=== PATIENT | male | born 1950 | race Caucasian/White ===

== ENCOUNTER 2022-09-29 07:56 | Emergency (ER) | payer MEDICARE, OTHER ==
[~2022-09-29] VITALS: Ht 175.3 cm; Wt 82.0 kg
[2022-09-29 08:12] VITALS: BP 118/115
[2022-09-29 10:31] LABS: CLARITY,URINE CLEAR (Clear); COLOR,URINE YELLOW (Yellow); GLUCOSE, URINE NEGATIVE (Neg); KETONES,URINE NEGATIVE (Neg); LEUKOCYTE ESTERASE ,URINE NEGATIVE (Neg); NITRITES, URINE NEGATIVE (Neg); OCCULT BLOOD,URINE MODERATE (Neg); PROTEIN,URINE NEGATIVE (Neg)
[2022-09-29 10:32] LABS: UA COLLECTION TYPE FOLEY CATH
[2022-09-29 10:46] LABS: BASOPHILS % (AUTO) 0.4 % (0-1); EOSINOPHILS % (AUTO) 0.2 % (0-6); HEMATOCRIT 39.6 % (42.0-52.0); HEMOGLOBIN 13.7 g/dl (14.0-17.9); LYMPHOCYTES # (AUTO) 0.5 X10'3 (1.1-4.8); LYMPHOCYTES % (AUTO) 5.6 % (21-51); MEAN CORPUSCULAR HEMOGLOBIN 30.9 PG (27.0-31.0); MEAN CORPUSCULAR HGB CONC 34.5 g/dL (33.0-36.5); MEAN CORPUSCULAR VOLUME 89.7 FL (78-98); MEAN PLATELET VOLUME 9.7 FL (7.4-10.4); MONOCYTES # (AUTO) 0.7 X10'3 (0-0.9); MONOCYTES % (AUTO) 7.2 % (2-12); NEUTROPHILS # (AUTO) 8.4 X10'3 (1.8-7.7); NEUTROPHILS % (AUTO) 86.6 % (42-75); PLATELET COUNT 127 X10'3 (140-440); RED BLOOD COUNT 4.42 X10'6 (4.70-6.10); RED CELL DISTRIBUTION WIDTH 13.3 % (11.5-14.5); WHITE BLOOD COUNT 9.7 X10'3 (4.5-11.0)
[2022-09-29 10:54] LABS: ALANINE AMINOTRANSFERASE 31 U/L (12-78); ALBUMIN 3.5 G/DL (3.4-5.0); ALBUMIN/GLOBULIN RATIO 1.2 (1.1-1.5); ALKALINE PHOSPHATASE 92 IU/L (46-116); ANION GAP 11 (8-16); ASPARTATE AMINO TRANSFERASE 25 U/L (10-37); BLOOD UREA NITROGEN 16 MG/DL (7-18); BUN/CREATININE RATIO 14.8 (5.4-32.0); CALCIUM 8.5 MG/DL (8.5-10.1); CHLORIDE 104 MMOL/L (99-107); CREATININE 1.08 MG/DL (0.60-1.10); GLUCOSE 123 MG/DL (70-104); POTASSIUM 3.6 MMOL/L (3.5-5.1); SODIUM 137 MMOL/L (135-145); TOTAL CARBON DIOXIDE 21.9 MMOL/L (24-32); TOTAL PROTEIN 6.4 G/DL (6.4-8.2); eGFR 67 ML/MIN
[2022-09-29 10:59] LABS: BACTERIA,URINE NONE SEEN /HPF (Neg); SQUAMOUS EPITHELIAL CELL,UR NONE SEEN /LPF (FEW)
[2022-09-29 11:00] LABS: MUCUS STRANDS FEW /LPF (Neg); WBC CLUMPS,URINE FEW /HPF (NEGATIVE)
== END 2022-09-29 12:11 | disposition home or self-care (01) ==
LOC: ER 07:57
DX: R33.9 Retention of urine, unspecified (principal); N39.0 Urinary tract infection, site not specified; Z98.890 Other specified postprocedural states
CPT/HCPCS: 36415; 51702; 80053; 81001; 85025; 87088; 99284; A4358

== ENCOUNTER 2022-10-02 15:13 | Emergency (ER) | payer MEDICARE, OTHER ==
[~2022-10-02] VITALS: Ht 175.3 cm; Wt 79.0 kg
[2022-10-02 16:13] VITALS: BP 153/84
== END 2022-10-02 17:32 | disposition home or self-care (01) ==
LOC: ER 15:14
DX: Z46.6 Encounter for fitting and adjustment of urinary device (principal); Z98.890 Other specified postprocedural states
CPT/HCPCS: 99281

== ENCOUNTER 2022-10-29 10:55 | Emergency (ER) | payer MEDICARE, OTHER ==
[~2022-10-29] VITALS: Ht 175.3 cm; Wt 79.5 kg
[~2022-10-29 10:55] MED LIST: OXYB5TAB16 PO
[2022-10-29 11:38] VITALS: BP 174/88
[2022-10-29 12:39] LABS: BASOPHILS % (AUTO) 0.5 % (0-1); EOSINOPHILS # (AUTO) 0.2 X10'3 (0-0.9); EOSINOPHILS % (AUTO) 2.8 % (0-6); HEMATOCRIT 43.7 % (42.0-52.0); HEMOGLOBIN 14.7 g/dl (14.0-17.9); LYMPHOCYTES # (AUTO) 1.4 X10'3 (1.1-4.8); LYMPHOCYTES % (AUTO) 19.7 % (21-51); MEAN CORPUSCULAR HEMOGLOBIN 30.2 PG (27.0-31.0); MEAN CORPUSCULAR HGB CONC 33.6 g/dL (33.0-36.5); MEAN CORPUSCULAR VOLUME 89.9 FL (78-98); MEAN PLATELET VOLUME 9.8 FL (7.4-10.4); MONOCYTES # (AUTO) 0.7 X10'3 (0-0.9); MONOCYTES % (AUTO) 9.8 % (2-12); NEUTROPHILS # (AUTO) 4.7 X10'3 (1.8-7.7); NEUTROPHILS % (AUTO) 67.2 % (42-75); PLATELET COUNT 144 X10'3 (140-440); RED BLOOD COUNT 4.86 X10'6 (4.70-6.10); RED CELL DISTRIBUTION WIDTH 13.3 % (11.5-14.5); WHITE BLOOD COUNT 7.1 X10'3 (4.5-11.0)
[2022-10-29 12:51] LABS: ALBUMIN 4.1 G/DL (3.4-5.0); ANION GAP 7 (8-16); BLOOD UREA NITROGEN 23 MG/DL (7-18); BUN/CREATININE RATIO 21.1 (5.4-32.0); CALCIUM 8.9 MG/DL (8.5-10.1); CHLORIDE 107 MMOL/L (99-107); CREATININE 1.09 MG/DL (0.60-1.10); GLUCOSE 112 MG/DL (70-104); POTASSIUM 4.2 MMOL/L (3.5-5.1); SODIUM 139 MMOL/L (135-145); TOTAL CARBON DIOXIDE 25.2 MMOL/L (24-32); eGFR 66 ML/MIN
--- NOTE | 2022-10-29 15:27 | NUR ---
VASCULAR AT BEDSIDE
== END 2022-10-29 16:06 | disposition home or self-care (01) ==
LOC: ER 10:56
DX: M25.461 Effusion, right knee (principal); M25.561 Pain in right knee
CPT/HCPCS: 36415; 80048; 85025; 93971; 99284

== ENCOUNTER 2022-12-10 09:19 | Inpatient (IN) | payer MEDICARE, OTHER ==
[~2022-12-10] VITALS: Ht 175.3 cm; Wt 79.5 kg
[2022-12-10 10:03] LABS: BASOPHILS % (AUTO) 0.4 % (0-1); EOSINOPHILS # (AUTO) 0.2 X10'3 (0-0.9); EOSINOPHILS % (AUTO) 2.6 % (0-6); HEMATOCRIT 44.2 % (42.0-52.0); LYMPHOCYTES # (AUTO) 1.4 X10'3 (1.1-4.8); LYMPHOCYTES % (AUTO) 15.3 % (21-51); MEAN CORPUSCULAR HEMOGLOBIN 30.2 PG (27.0-31.0); MEAN CORPUSCULAR VOLUME 88.8 FL (78-98); MEAN PLATELET VOLUME 9.2 FL (7.4-10.4); MONOCYTES # (AUTO) 0.7 X10'3 (0-0.9); MONOCYTES % (AUTO) 7.4 % (2-12); NEUTROPHILS # (AUTO) 6.7 X10'3 (1.8-7.7); NEUTROPHILS % (AUTO) 74.3 % (42-75); PLATELET COUNT 181 X10'3 (140-440); RED BLOOD COUNT 4.97 X10'6 (4.70-6.10); RED CELL DISTRIBUTION WIDTH 13.3 % (11.5-14.5)
[2022-12-10 10:21] LABS: ALBUMIN 4.2 G/DL (3.4-5.0); ALBUMIN/GLOBULIN RATIO 1.5 (1.1-1.5); ALKALINE PHOSPHATASE 76 IU/L (46-116); BLOOD UREA NITROGEN 26 MG/DL (7-18); BUN/CREATININE RATIO 22.4 (5.4-32.0); CALCIUM 9.2 MG/DL (8.5-10.1); CHLORIDE 104 MMOL/L (99-107); CREATININE 1.16 MG/DL (0.60-1.10); GLUCOSE 124 MG/DL (70-104); POTASSIUM 4.3 MMOL/L (3.5-5.1); SODIUM 137 MMOL/L (135-145); TOTAL CARBON DIOXIDE 26.1 MMOL/L (24-32); eGFR 62 ML/MIN
[2022-12-10 10:28] LABS: ASPARTATE AMINO TRANSFERASE 7 U/L (10-37)
[2022-12-10 10:38] LABS: ALANINE AMINOTRANSFERASE < 6 U/L (12-78); ANION GAP 28 (8-16)
[2022-12-10 13:45] LABS: D-DIMER 0.38 MG/L FEU (0-0.50)
[2022-12-10] MEDS ORDERED: morphine 2 MG/ML inj. syringe IV PRN ×2 (14:50)
[2022-12-10] MEDS ORDERED: ondansetron/PF 4mg/2ml inj IV PRN (14:50)
[2022-12-10] MEDS ORDERED: acetaminophen 325mg tablet PO PRN ×2 (14:50)
[2022-12-10] MEDS ORDERED: mag hydrox/Alum hydrox/simeth 30ml oral suspension PO PRN (14:50)
[2022-12-10] MEDS ORDERED: magnesium hydroxide 30ml (MOM) UD suspension PO PRN (14:50)
[2022-12-10 14:52] LABS: APTT 31 SECONDS (22-32)
[2022-12-10 15:02] LABS: ALANINE AMINOTRANSFERASE 20 U/L (12-78); ALBUMIN 4.1 G/DL (3.4-5.0); ALBUMIN/GLOBULIN RATIO 1.5 (1.1-1.5); ALKALINE PHOSPHATASE 76 IU/L (46-116); ANION GAP 7 (8-16); ASPARTATE AMINO TRANSFERASE 8 U/L (10-37); BILIRUBIN,TOTAL 1.6 MG/DL (0.1-1.0); BLOOD UREA NITROGEN 24 MG/DL (7-18); BUN/CREATININE RATIO 21.1 (5.4-32.0); C-REACTIVE PROTEIN 0.83 MG/DL (0.0-0.5); CHLORIDE 105 MMOL/L (99-107); CREATININE 1.14 MG/DL (0.60-1.10); GLUCOSE 109 MG/DL (70-104); POTASSIUM 4.3 MMOL/L (3.5-5.1); SODIUM 138 MMOL/L (135-145); TOTAL CARBON DIOXIDE 25.7 MMOL/L (24-32); TOTAL PROTEIN 6.9 G/DL (6.4-8.2); eGFR 63 ML/MIN
[2022-12-10] MEDS ORDERED: FINA5TAB11 PO (18:21)
[2022-12-10] MEDS ORDERED: ATOR10TA70 PO (18:21)
[2022-12-10] MEDS ORDERED: OXYB5TAB16 PO (18:21)
[2022-12-10] MEDS ORDERED: FLO0.4C PO (18:22)
[2022-12-10] MEDS ORDERED: OMEP40CA21 PO (18:22)
[2022-12-10] MEDS ORDERED: IBUP-860 PO (18:25)
[2022-12-10] MEDS ORDERED: ACET325T55 PO (18:25)
[2022-12-10] MEDS ORDERED: TURM500C4 PO (18:25)
[2022-12-10] MEDS ORDERED: GLUC-95 PO (18:25)
[2022-12-10] MEDS ORDERED: CHOL10006 PO (18:26)
--- NOTE | 2022-12-10 19:12 | NUR ---
Patient in room ED 19. I have received [facility] from [facility] and had the opportunity to ask questions and will assume patient care.
[2022-12-10 19:30] VITALS: BP 135/75
[2022-12-10 20:00] VITALS: BP_SYST 155; BP_SYST 157; BP_SYST 164; BP_DIAS 84; BP_DIAS 87
[2022-12-10] MEDS: docusate sod 100mg capsule PO SCH (20:47)
[2022-12-10] MEDS: HYDROcodone/acetaminophen 5mg/325mg tablet PO PRN (20:50)
[2022-12-10 22:21] LABS: CLARITY,URINE CLEAR (Clear); COLOR,URINE YELLOW (Yellow); GLUCOSE, URINE NEGATIVE (Neg); KETONES,URINE NEGATIVE (Neg); LEUKOCYTE ESTERASE ,URINE NEGATIVE (Neg); NITRITES, URINE NEGATIVE (Neg); OCCULT BLOOD,URINE NEGATIVE (Neg); PROTEIN,URINE NEGATIVE (Neg); UROBILINOGEN,URINE 0.2 E.U/dL (0.2-1.0)
[2022-12-10 22:29] LABS: UA COLLECTION TYPE NON-SPECIFIED
[2022-12-10 22:45] VITALS: BP 155/87
[2022-12-11] MEDS: HYDROcodone/acetaminophen 5mg/325mg tablet PO PRN (01:37)
[2022-12-11 05:00] VITALS: BP 133/76
--- NOTE | 2022-12-11 06:21 | NUR ---
Problems reprioritized. Patient report given, questions answered & plan of care reviewed with ANA MCKOY.
[2022-12-11 06:36] LABS: ALBUMIN 3.6 G/DL (3.4-5.0); ANION GAP 6 (8-16); BLOOD UREA NITROGEN 25 MG/DL (7-18); BUN/CREATININE RATIO 24.3 (5.4-32.0); CALCIUM 8.6 MG/DL (8.5-10.1); CHLORIDE 106 MMOL/L (99-107); CREATININE 1.03 MG/DL (0.60-1.10); GLUCOSE 94 MG/DL (70-104); POTASSIUM 3.9 MMOL/L (3.5-5.1); SODIUM 138 MMOL/L (135-145); TOTAL CARBON DIOXIDE 25.6 MMOL/L (24-32); eGFR 71 ML/MIN
[2022-12-11 06:48] LABS: BASOPHILS % (AUTO) 0.6 % (0-1); EOSINOPHILS # (AUTO) 0.3 X10'3 (0-0.9); EOSINOPHILS % (AUTO) 4.6 % (0-6); HEMATOCRIT 40.8 % (42.0-52.0); HEMOGLOBIN 13.6 g/dl (14.0-17.9); LYMPHOCYTES # (AUTO) 1.6 X10'3 (1.1-4.8); LYMPHOCYTES % (AUTO) 23.8 % (21-51); MEAN CORPUSCULAR HEMOGLOBIN 29.7 PG (27.0-31.0); MEAN CORPUSCULAR HGB CONC 33.4 g/dL (33.0-36.5); MEAN CORPUSCULAR VOLUME 88.7 FL (78-98); MONOCYTES # (AUTO) 0.6 X10'3 (0-0.9); MONOCYTES % (AUTO) 8.9 % (2-12); NEUTROPHILS # (AUTO) 4.2 X10'3 (1.8-7.7); NEUTROPHILS % (AUTO) 62.1 % (42-75); PLATELET COUNT 176 X10'3 (140-440); RED CELL DISTRIBUTION WIDTH 13.2 % (11.5-14.5); WHITE BLOOD COUNT 6.8 X10'3 (4.5-11.0)
[2022-12-11] MEDS: docusate sod 100mg capsule PO SCH (07:17)
[2022-12-11 10:00] VITALS: BP 113/77
[2022-12-11] MEDS ORDERED: naproxen 500mg tablet PO SCH (11:39)
[2022-12-11 11:40] VITALS: BP_SYST 113; BP_SYST 135; BP_SYST 156; BP_DIAS 77; BP_DIAS 79; BP_DIAS 84
[2022-12-11] MEDS ORDERED: NAPR-56 PO (11:48)
--- NOTE | 2022-12-11 13:30 | NUR ---
Pt discharged home with , pt has no complaints of dizziness or syncopal episodes. Per Dr Rosa patient can go home and follow up with carotid vascular results since they likely won't result this weekend per soil technician. Pt aware and is aware of how to access results and come back for medical records. Pt will f/u with pcp. IV dc'd . Tele dc'd. No meds in pharmacy. Pt appears stable for discharge at this time.
== END 2022-12-11 13:30 | disposition home or self-care (01) | DRG 312 ==
LOC: ER 09:20 → ED HOLD 14:49 → EDBEDREQ 18:58 → SUR 3N 19:29
PROVIDERS: ADMIT Internal Medicine; ATTEND Internal Medicine
DX: R55 Syncope and collapse (principal); M02.361 Reiter's disease, right knee; N40.0 Benign prostatic hyperplasia without lower urinary tract symptoms; M25.561 Pain in right knee; Z79.899 Other long term (current) drug therapy; Z90.49 Acquired absence of other specified parts of digestive tract
CPT/HCPCS: 36415; 70450; 71045; 80048; 80053; 81003; 83880; 84484; 85025; 85379; 85610; 85651; 85730; 86140; 87081; 93005; 93880; 99285; G0378

== ENCOUNTER 2023-08-31 15:12 | Outpatient (CLI) | payer MEDICARE, OTHER ==
[~2023-08-31 15:12] MED LIST changes: +ACET325T55 PO; +ATOR10TA70 PO; +CHOL10006 PO; +FINA5TAB11 PO; +FLO0.4C PO; +GLUC-95 PO; +NAPR-56 PO; +OMEP40CA21 PO; +TURM500C4 PO
== END 2023-08-31 23:59 | disposition home or self-care (01) ==
LOC: RAD 15:12
PROVIDERS: ATTEND Psychiatry & Neurology Neurology
DX: R13.12 Dysphagia, oropharyngeal phase (principal); R49.0 Dysphonia
CPT/HCPCS: 74230